=== PATIENT | female | born 1965 | race Caucasian/White ===

== ENCOUNTER 2016-09-03 23:45 | Emergency (ER) | payer SELFPAY ==
[~2016-09-03 23:45] MED LIST: CIPRO500 M2 PO; D-VERT25 MG PO; KEFLEX500 M4 PO; VALIUM2 MG PO; WOMEN MULTIVIT1 EACH PO
[2016-09-04 02:12] LABS: BASO % 0.7 % (0-2); BASO ABSOLUTE COUNT 0.1 tho/cmm (0.0-0.2); EOS % 3.6 % (0-7); EOSINOPHIL ABSOLUTE COUNT 0.3 tho/cmm (0.0-0.7); HCT-HEMATOCRIT 36.2 % (34.0-49.0); HGB-HEMOGLOBIN 11.8 gm/dl (12.0-15.5); IMMATURE GRANULOCYTES ABSOLUTE 0.02 tho/cmm (0-0.03); IMMATURE GRANULOCYTES PERCENT 0.3 % (0-0.3); LYMPH % 21.9 % (20-45); LYMPH ABSOLUTE COUNT 1.6 tho/cmm (0.8-4.5); MCH (MEAN CORPUSCULAR HGB) 28.7 pg (28.0-32.0); MCHC MEAN CORPUSCULAR HGB CONC 32.6 % (32.0-36.0); MCV (MEAN CELL VOLUME) 88.1 fl (82.0-96.0); MEAN PLATELET VOLUME 9.9 cmc (9.4-12.4); MONO % 9.4 % (0-12); MONOCYTE ABSOLUTE COUNT 0.7 tho/cmm (0.0-1.2); NEUTROPHIL ABSOLUTE COUNT 4.7 tho/cmm (1.6-8.0); NEUTROPHIL-AUTOMATED 4.7 tho/cmm (1.6-8.0); NEUTROPHILS % 64.1 % (40-80); PLATELET COUNT 240 tho/cmm (150-450); RED BLOOD COUNT 4.11 mil/cmm (4.00-5.20); RED CELL DISTRIBUTION WIDTH 15.1 % (12.4-16.4); WHITE BLOOD COUNT 7.3 tho/cmm (4.0-10.0)
[2016-09-04 02:15] LABS: PROTHROMBIN TIME 12.1 SECONDS (9.0-13.6)
[2016-09-04 02:24] LABS: ALB/GLOB RATIO 1.1 (0.8-2.0); ALBUMIN 3.5 g/dl (3.5-5.0); ALKALINE PHOSPHATASE 62 U/L (33-138); ALT/SGPT 26 U/L (12-78); ANION GAP 10 mmol/L (0-20); AST/SGOT 18 U/L (10-40); BILIRUBIN,TOTAL 0.3 mg/dl (0-1.5); BLOOD UREA NITROGEN 18 mg/dl (6-24); CALCIUM 8.7 mg/dl (8.5-10.5); CARBON DIOXIDE-VENOUS 31 mmol/L (22-32); CHLORIDE 107 mmol/l (96-110); CREATININE 1.32 mg/dl (0.50-1.10); GLUCOSE 96 mg/dL (70-110); POTASSIUM 4.3 mmol/L (3.7-5.1); SODIUM 144 mmol/L (135-145); eGFR VALUE FOR BLACK 55 mL/Min
[2016-09-04 02:40] LABS: URINE APPEARANCE CLOUDY; URINE COLOR BROWN; URINE LEUKOCYTE ESTERASE POSITIVE (NEG); URINE PH 6.5 (5.0-8.0)
[2016-09-04 02:41] LABS: URINE BILIRUBIN SMALL (NEG); URINE BLOOD LARGE (NEG); URINE GLUCOSE (UA) NEGATIVE (NEG); URINE KETONE MODERATE (NEG); URINE NITRITE NEGATIVE (NEG); URINE PROTEIN POSITIVE (NEG)
[2016-09-04 02:42] LABS: URINE BACTERIA 3+; URINE RBC FULL FIELD /[HPF] (0-5); URINE WBC FULL FIELD /[HPF] (0-5)
[2016-09-04] MEDS ORDERED: NORCO 5-325 TA1 EACH PO (03:42)
[2016-09-04] MEDS ORDERED: PYRIDIUM200 M2 PO (03:42)
== END 2016-09-04 04:00 ==
LOC: EDMED 23:45
PROVIDERS: Family Medicine
PROC: 0T9B70Z Drainage of Bladder with Drainage Device, Via Natural or Artificial Opening (ICD-10-PCS; principal; 2016-09-04)
PROC: 4A0D7LZ Measurement of Urinary Volume, Via Natural or Artificial Opening (ICD-10-PCS; 2016-09-04)
DX: T83.511A Infection and inflammatory reaction due to indwelling urethral catheter, initial encounter (principal); T83.098A Other mechanical complication of other urinary catheter, initial encounter; N17.9 Acute kidney failure, unspecified; Z98.890 Other specified postprocedural states